=== PATIENT | male | born 1990 | race Caucasian/White ===

== ENCOUNTER 2018-03-14 19:03 | Emergency (ER) | payer OTHER, SELFPAY ==
[2018-03-14 19:06] VITALS: BP 140/90; PULSE 80; RESP 20; TEMP 36.7; O2SAT 100; BMI 23.0
--- NOTE | 2018-03-14 19:10 | DI.RAD.S_ITS ---
PROCEDURE: XR WRIST RT MIN 3V INDICATIONS: injury, pain TECHNIQUE: 4 views of the wrist were acquired. COMPARISON: None. FINDINGS: Bones: There is a nondisplaced transverse fracture in the distal pole of the scaphoid. A slightly displaced ulnar styloid fracture is present. No suspicious bony lesions. Soft tissues: No suspicious soft tissue calcifications. Soft tissue swelling is present. IMPRESSION: 1. Nondisplaced scaphoid fracture involving the distal pole. 2. Ulnar styloid fracture. Dictated by: Cristobal Zayas M.D. on 03/14/2018 at 19:27 Approved by: Cristobal Zayas M.D. on 03/14/2018 at 19:29
[2018-03-14] MEDS: IBUPROFEN 400 MG TABLET 800 MG PO (20:20)
--- NOTE | 2018-03-14 20:24 | ED.UPPEXIN ---
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 He is right-handed. States that he thought it was okay at the time, but started hurting intensely today after work (he did not have any new trauma but was lifting small containers of strawberries repetitively). He denies any other injury. He states he is not having pain in the wrist, forearm, or elbow. He did not hit his head or pass out. He took 1 of his grandmother's oxycodone and also some ibuprofen which he thinks helped earlier Related Data Allergies Allergy/AdvReac Type Severity Reaction Status Date / Time No Known Drug Allergies Allergy Verified 03/14/18 19:10 Review of Systems <Citlaly Cano PA-C - Last Filed: 03/14/18 22:38> Review of Systems All systems reviewed & are unremarkable except as noted in HPI and below PFSH <Citlaly Cano PA-C - Last Filed: 03/14/18 22:38> Comment: uses [facility]. 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 LUNGS: Clear to auscultation bilaterally. HEART: Rate and rhythm regular without murmur, normal S1 and S2, no S3 or S4. MUSCULOSKELETAL: No right wrist effusion. Tender over both the medial and lateral distal borders of the right wrist. No tenderness over the metacarpals, right hand fingers, forearm or elbow. Strength is intact in all of the fingers against resistance. NEUROVASCULAR: Right wrist pulses are intact, fingers are warm and pink with brisk cap refill. Sensation is grossly intact Initial Vital Signs Initial Vital Signs: Vital Signs Temperature 98.0 F 03/14/18 19:06 Pulse Rate 80 03/14/18 19:06 Respiratory Rate 20 03/14/18 19:06 Blood Pressure 140/90 03/14/18 19:06 Pulse Oximetry 100 03/14/18 19:06 <Junaid Ochoa DO - Last Filed: 03/15/18 00:26> Initial Vital Signs Initial Vital Signs: Vital Signs Temperature 98.0 F 03/14/18 19:06 Pulse Rate 80 03/14/18 19:06 Respiratory Rate 20 03/14/18 19:06 Blood Pressure 140/90 03/14/18 19:06 Pulse Oximetry 100 03/14/18 19:06 Course <Citlaly Cano PA-C - Last Filed: 03/14/18 22:38> Additional Information: Modified thumb spica splint placed (also extending to ulnar side to immobilize 4th and 5th fingers). Patient reported this felt comfortable. On splint check this appeared well-fitted, fingers were warm and pink with sensation intact Orders Ordered: ED Orders 03/14/18 19:10 XR wrist RT min 3V Stat Discontinued Medications Ibuprofen (Advil) 800 mg PO NOW ONE Stop: 03/14/18 20:18 Last Admin: 03/14/18 20:20 Dose: 800 mg Oxycodone/Acetaminophen (Percocet 5/325) 1 tab PO NOW ONE Stop: 03/14/18 20:38 Last Admin: 03/14/18 20:58 Dose: 1 tab Oxycodone/Acetaminophen (Endocet 5/325 Prepack) 1 bottle MISC SEEINSTR ONE Stop: 03/14/18 20:50 Last Admin: 03/14/18 20:59 Dose: 1 bottle Vital Signs - 8 hr 03/14/18 19:06 03/14/18 22:06 Temperature 98.0 F Pulse Rate 80 74 Respiratory Rate 20 18 Blood Pressure 140/90 130/85 Pulse Oximetry 100 97 <Junaid Ochoa DO - Last Filed: 03/15/18 00:26> Orders Ordered: ED Orders 03/14/18 19:10 XR wrist RT min 3V Stat Discontinued Medications Ibuprofen (Advil) 800 mg PO NOW ONE Stop: 03/14/18 20:18 Last Admin: 03/14/18 20:20 Dose: 800 mg Oxycodone/Acetaminophen (Percocet 5/325) 1 tab PO NOW ONE Stop: 03/14/18 20:38 Last Admin: 03/14/18 20:58 Dose: 1 tab Oxycodone/Acetaminophen (Endocet 5/325 Prepack) 1 bottle MISC SEEINSTR ONE Stop: 03/14/18 20:50 Last Admin: 03/14/18 20:59 Dose: 1 bottle Vital Signs - 8 hr 03/14/18 19:06 03/14/18 22:06 Temperature 98.0 F Pulse Rate 80 74 Respiratory Rate 20 18 Blood Pressure 140/90 130/85 Pulse Oximetry 100 97 MDM - Extremity Injury (Upper) <Citlaly Cano PA-C - Last Filed: 03/14/18 22:38> Imaging Data wrist: Radiologist's impression: View Report History [address] [address] XRay Report Signed Patient: KASHIF KENT MR#: [id number] : 1990 Acct:[id number] Age/Sex: 27 / M Date of Service: 03/14/18 Loc: ED Accession Number: [id number] Procedure: XR wrist RT min 3V Ordering Provider: Citlaly Cano P.A-C PROCEDURE: XR WRIST RT MIN 3V INDICATIONS: injury, pain TECHNIQUE: 4 views of the wrist were acquired. COMPARISON: None. FINDINGS: Bones: There is a nondisplaced transverse fracture in the distal pole of the scaphoid. A slightly displaced ulnar styloid fracture is present. No suspicious bony lesions. Soft tissues: No suspicious soft tissue calcifications. Soft tissue swelling is present. IMPRESSION: 1. Nondisplaced scaphoid fracture involving the distal pole. 2. Ulnar styloid fracture. Dictated by: Cristobal Zayas M.D. on 03/14/2018 at 19:27 Approved by: Cristobal Zayas M.D. on 03/14/2018 at 19:29 Discharge Plan Departure Patient Disposition: Home Clinical Impression: Fracture of wrist Discharge Date/Time: 03/14/18 22:07 Interventions: ED Discharge Assessment Last Done: 03/14/18 22:06 Instructions: DI for Wrist Fracture Activity Restrictions/Additional Instructions: Return if you have acutely worsening symptoms or problems with your splint. Otherwise, you can take the pain pills we gave you tonight and tomorrow if needed (no driving as they can make you sleepy), and take Ibuprofen 800mg every 8 hours with food for the next couple of days for pain and inflammation, then as needed. Call orthopedics on Friday and let them know that you were seen in the emergency dept for fractures and need to set up a follow up visit next week. Referrals: [facility] [Provider Group] <Junaid Ochoa DO - Last Filed: 03/15/18 00:26> Cosign ED Attending Beka Attestation: I was available for consultation during this patient's emergency department encounter
[2018-03-14] MEDS: OXYCODONE/ACETAMINOPHEN 5/325 TABLET 1 TAB PO (20:58)
[2018-03-14] MEDS: OXYCODONE/APAP 5/325 PREPACK 1 BOTTLE MISC (20:59)
[2018-03-14 22:06] VITALS: BP 130/85; PULSE 74; RESP 18; O2SAT 97
== END 2018-03-14 22:07 | disposition home or self-care (01) ==
PROVIDERS: Emergency Provider Internal Medicine
DX: S62.014A Nondisplaced fracture of distal pole of navicular [scaphoid] bone of right wrist, initial encounter for closed fracture (principal); S52.611A Displaced fracture of right ulna styloid process, initial encounter for closed fracture; V00.131A Fall from skateboard, initial encounter
CPT/HCPCS: 29125; 73110; 99283

== ENCOUNTER → 2018-04-07 12:33 | Outpatient (CLI) | payer OTHER, SELFPAY ==
--- NOTE | 2018-04-07 | DI.CT.S_ITS ---
PROCEDURE: CT UE RT WO CON INDICATIONS: NONDISPLACED FRACTURE OF RIGHT WRIST TECHNIQUE: Noncontrast 1 mm axial sections acquired through the carpal bones, with coronal and sagittal reformats. COMPARISON: [facility], CR, XR WRIST RT MIN 3V, 03/14/2018, 18:50. FINDINGS: Image quality: Excellent. Bones: Nondisplaced scaphoid waist fracture is again noted, unchanged in alignment since 03/14/18. There is partial osseous fusion in keeping with healing fracture. No definite focal sclerosis seen in the proximal pole. No evidence of articular surface collapse. Ulnar styloid fracture again noted as before. IMPRESSION: Healing scaphoid waist fracture with partial osseous fusion and unchanged alignment. No evidence of avascular necrosis. Unchanged ulnar styloid fracture. Dictated by: Nathan Smith M.D. on 04/07/2018 at 14:08 Approved by: Nathan Smith M.D. on 04/07/2018 at 14:13
== END ==
PROVIDERS: Visit Provider Orthopaedic Surgery
DX: S62.001D Unspecified fracture of navicular [scaphoid] bone of right wrist, subsequent encounter for fracture with routine healing (principal); S52.611D Displaced fracture of right ulna styloid process, subsequent encounter for closed fracture with routine healing
CPT/HCPCS: 73200

== ENCOUNTER 2018-12-14 20:39 | Emergency (ER) | payer OTHER, SELFPAY ==
[2018-12-14 20:40] VITALS: BP 140/86; PULSE 103; RESP 14; TEMP 37.1; O2SAT 98
== END 2018-12-14 23:07 | disposition left against medical advice (07) ==
PROVIDERS: Emergency Provider Emergency Medicine
DX: Z53.21 Procedure and treatment not carried out due to patient leaving prior to being seen by health care provider (principal)
CPT/HCPCS: 99282

== ENCOUNTER → 2021-06-26 11:32 | Outpatient (CLI) | payer OTHER, MEDICAID, SELFPAY | PROVIDERS: Visit Provider Physician Assistant | DX: Z20.822 Contact with and (suspected) exposure to COVID-19 (principal); R05.9 Cough, unspecified; R07.0 Pain in throat | CPT/HCPCS: 87070; 87077; 87147; 87880 ==

== ENCOUNTER 2021-12-30 20:19 | Emergency (ER) | payer OTHER, MEDICAID, SELFPAY ==
[2021-12-30 20:42] VITALS: BP 157/94; PULSE 88; RESP 16; TEMP 36.9; O2SAT 99; BMI 23.0
[2021-12-30 23:19] VITALS: BP 133/92; PULSE 87; O2SAT 96
[2021-12-30] MEDS: DEXAMETHASONE 10 MG/ML VIAL 20 MG IV (23:59)
[2021-12-30] MEDS: KETOROLAC 30 MG/ML VIAL 15 MG IV (23:59)
[2021-12-30] MEDS: SODIUM CHLORIDE 0.9% 1,000 ML 1000 ML IV (23:59)
[2021-12-31] MEDS: AMOXICILLIN/CLAV 875/125 MG 1 TAB PO (00:29)
[2021-12-31 00:31] VITALS: PULSE 82; O2SAT 98
[2021-12-31 00:32] VITALS: BP 144/86; PULSE 75; O2SAT 99
--- NOTE | 2021-12-31 02:35 | ED.URI ---
HPI - URI/Sore Throat General Chief Complaint: Upper Respiratory Symptoms Stated Complaint: sWOLLEN TONSILS, SORE THROAT Time Seen by Provider: 12/30/21 23:30 History of Present Illness HPI Narrative: 31-year-old male smoker presents with a chief complaint sore throat and enlarged tonsils with difficulty swallowing for the past few days. He states his notably worse on the left than the right. He is able to eat and drink though with difficulty. He has pain but is able to swallow. He denies any trouble breathing. He states that he has been seen and had a negative COVID swab and has had a negative strep. He denies any current fever but was running a temperature a day or 2 ago. He denies any chest pain or shortness of breath. He has had no nausea, vomiting or diarrhea. Related Data Previous Rx's Medication Instructions Recorded amoxicillin 875 mg-potassium 1 tab PO Q12H #20 tabs 12/31/21 clavulanate 125 mg tablet Allergies Allergy/AdvReac Type Severity Reaction Status Date / Time No Known Drug Allergies Allergy Verified 12/14/18 20:43 Review of Systems Review of Systems Narrative: GENERAL: See HPI HEENT: See HPI RESPIRATORY: Denies dyspnea, cough, wheezing, hemoptysis, sputum. CARDIOVASCULAR: Denies chest pain, palpitations, orthopnea, edema, GASTROINTESTINAL: Denies nausea, vomiting, abdominal pain, diarrhea, constipation, melena. : Denies dysuria, frequency, incontinence, hematuria, urinary retention. MUSCULOSKELETAL: denies weakness, joint pain, or bony pain SKIN: Denies rash, skin lesions, or other NEUROLOGIC: Denies weakness, headache, numbness, change in speech, confusion, seizures, incoordination. PSYCHIATRIC: No concerning psychosocial issues. 12 point review of systems is negative except for those stated above Patient History Medical History Healthy adult male History of left below knee amputation Surgical History H/O hand surgery Social History Smoking Status: Current some day smoker Smoking Status: Current some day smoker alcohol intake frequency: a few times a week Substance Use Type: marijuana Exam Narrative Exam Narrative: GENERAL: [31] year old patient appears stated age. Well-developed patient, in mild distress. HEAD: Atraumatic. Normocephalic. EYES: Pupils equal round and reactive. Extraocular motions intact. No scleral icterus. No injection or drainage. ENT: Nose without bleeding, purulent drainage. Posterior pharyngeal erythema is noted and left tonsil swollen with exudate. There is some posterior fullness to suggest an early abscess, perhaps a very minimal uvular pointing, patient tolerating secretions without difficulty, airway patent. NECK: Trachea midline. Non tender CARDIOVASCULAR: Regular rate and rhythm without murmurs, gallops, or rubs. RESPIRATORY: Clear to auscultation. Breath sounds equal bilaterally. No wheezes, rales, or rhonchi. GASTROINTESTINAL: Abdomen soft, non-tender, nondistended. EXTREMITIES: No edema or joint tenderness. BACK: Nontender without deformity or crepitance. No flank tenderness. NEURO: AOx3. SKIN: No rash or erythema of visible areas Initial Vital Signs Initial Vital Signs: Vital Signs Temperature 98.4 F 12/30/21 20:42 Pulse Rate 88 12/30/21 20:42 Respiratory Rate 16 12/30/21 20:42 Blood Pressure 157/94 H 12/30/21 20:42 Pulse Oximetry 99 12/30/21 20:42 Oxygen Delivery Method 12/30/21 20:42 Course Orders Ordered: ED Orders 12/30/21 20:50 Throat Culture Stat Discontinued Medications Amoxicillin/Clavulanate Potassium (Amoxicillin/Clav 875/125 Mg) 1 tab PO NOW ONE Stop: 12/31/21 00:23 Last Admin: 12/31/21 00:29 Dose: 1 tab Documented By: DANY Dexamethasone (Dexamethasone 10 Mg/Ml Vial) 20 mg IV NOW ONE Stop: 12/30/21 23:47 Last Admin: 12/30/21 23:59 Dose: 20 mg Documented By: DANY Sodium Chloride (Normal Saline 0.9%) 1,000 mls @ 1,000 mls/hr IV BOLUS ONE Stop: 12/31/21 00:45 Last Admin: 12/30/21 23:59 Dose: 1,000 mls/hr Documented By: DANY Ketorolac Tromethamine (Ketorolac 30 Mg/Ml Vial) 15 mg IV NOW ONE Stop: 12/30/21 23:47 Last Admin: 12/30/21 23:59 Dose: 15 mg Documented By: Vital Signs Vital signs: Vital Signs - 8 hr 12/30/21 20:42 12/30/21 23:19 12/30/21 23:19 Temperature 98.4 F Pulse Rate 88 87 Respiratory Rate 16 Blood Pressure 157/94 H 133/92 H Pulse Oximetry 99 96 Oxygen Delivery Method Room Air Room Air 12/31/21 00:31 12/31/21 00:32 12/31/21 00:32 Temperature Pulse Rate 82 75 Respiratory Rate Blood Pressure 144/86 H Pulse Oximetry 98 99 Oxygen Delivery Method MDM - URI/Sore Throat Lab Data Labs: Point of Care Testing Rapid Strep A Negative MDM Narrative Medical decision making narrative: Rapid strep negative and culture obtained, there is tonsillar swelling and exudate with some fullness to suggest an early abscess. Patient tolerating secretions with patent airway. Given fluids, anti-inflammatories and antibiotics with strict return precautions. Questions answered to his apparent satisfaction Discharge Plan Departure Patient Disposition: Home Clinical Impression: Abscess, peritonsillar Instructions: DI for Peritonsillar Abscess -- Adult Activity Restrictions/Additional Instructions: *You have been diagnosed with [peritonsillar abscess *What to do: *Please continue to take your regular medications as directed. [x ] New medication prescriptions sent to your pharmacy: [ [facility]] [ ] New medication written as a paper prescription [ ] No new medications given *Please follow up with your primary care provider in 2-3 days, call for an appointment. Let them know you were seen in the Emergency Department and that we ask that you be seen in follow up. We will electronically transmit a record of today's note if your PCP is in our system *If you do not have a primary care provider please contact the [facility] Resource line at [phone]. They will ask some questions about your medical history and help get you set up with a doctor in the community. *Return to Emergency Department if you should have any new, worsening or concerning symptoms, such as [fever greater than 101 F, shaking chills, worsening pain, persistent vomiting or other bothersome symptoms] Prescriptions: New amoxicillin-pot clavulanate 875-125 mg tablet 1 tab PO Q12H Qty: 20 0RF Referrals: Miscellaneous,Doctor, [Primary Care Provider] - Visit Report Forms: Patient Portal/API
--- NOTE | 2021-12-31 10:16 | PC.NURSE ---
Patient calling because he is unable to fill his Augmentin prescription, due to the holiday. It was sent to [facility]. He is requesting it be sent to [facility]. Called and spoke with pharmacist and gave verbal to fill.
== END 2021-12-31 00:37 | disposition home or self-care (01) ==
PROVIDERS: Emergency Provider Emergency Medicine
DX: J36 Peritonsillar abscess (principal)
CPT/HCPCS: 87070; 87880; 96374; 96375; 99284; J1100; J1885

== ENCOUNTER 2023-10-22 10:57 | Emergency (ER) | payer OTHER, MEDICAID, SELFPAY ==
[2023-10-22] VITALS (16 sets, daily range): BP systolic 131–153; BP diastolic 67–82; PULSE 99–130; RESP 15–29; TEMP 36.6; O2SAT 94–100; BMI 25.1
[2023-10-22 11:58] LABS: Add Manual Diff / Slide Review NO; Basophils Absolute Auto 0 /uL (0-100); Basophils Percent Auto 0.2 % (0-2); Eosinophils Absolute Auto 100 /uL (0-450); Eosinophils Percent Auto 0.4 % (2-4); Hematocrit 34.3 % (41-53); Hemoglobin 11.9 g/dL (13.5-17.5); Lymphocytes Absolute Auto 700 /uL (1100-4500); Lymphocytes Percent Auto 5.7 % (25-40); Mean Corpuscular HGB Conc 34.8 % (30-36); Mean Corpuscular Hemoglobin 31.9 PG (26-34); Mean Corpuscular Volume 91.7 fL (80-100); Monocytes Absolute Auto 1000 /uL (0-900); Monocytes Percent Auto 8.2 % (3-14); Neutrophils Absolute Auto 10900 /uL (1500-7000); Neutrophils Percent Auto 85.5 % (50-75); Platelet Count 218 X10^3/uL (150-400); Red Blood Cell Count 3.74 X10^6/uL (4.5-5.9); Red Cell Distribution Width 13.4 % (11.6-14.8); White Blood Cell Count 12.8 X10^3/uL (4.5-11.0)
[2023-10-22 12:02] LABS: Alanine Aminotransferase 32 IU/L (<50); Albumin 4.4 g/dL (3.5-5.0); Albumin Globulin Ratio 1.4 (1.0-2.8); Alkaline Phosphatase 70 U/L (38-126); Aspartate Aminotransferase 30 IU/L (17-59); BUN Creatinine Ratio 13.8 (6-22); Bilirubin Total 1.8 mg/dL (0.2-1.3); Blood Urea Nitrogen 11 mg/dL (9-20); Calcium 8.9 mg/dL (8.4-10.2); Carbon Dioxide 29 mmol/L (22-32); Chloride 101 mmol/L (98-107); Estimated Glomerular Filt Rate > 60 mL/min (>60); Globulin 3.1 g/dL (1.7-4.1); Glucose 126 mg/dL (70-100); HEMOLYSIS < 15 (0-50); Potassium 3.2 mmol/L (3.4-5.1); Sodium 138 mmol/L (137-145); Total Protein 7.5 g/dL (6.3-8.2)
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
--- NOTE | 2023-10-22 12:13 | DI.CT.S_ITS ---
PROCEDURE: CT HEAD/BRAIN WO CON INDICATIONS: trauma TECHNIQUE: Noncontrast 4.5 mm thick angled axial sections acquired from the foramen magnum to the vertex, with coronal and sagittal reformats. For radiation dose reduction, the following was used: automated exposure control, adjustment of mA and/or kV according to patient size. COMPARISON: None. FINDINGS: Image quality: Diagnostic. CSF spaces: Basal cisterns are patent. No extra-axial fluid collections. Ventricles are normal in size and shape. Brain: No midline shift. No intracranial masses or hemorrhage. Shaw-white matter interface is normal. Skull and face: Calvarium and visualized facial bones are intact, without suspicious lesions. Small left frontal scalp hematoma. Sinuses: Small mucous retention cyst versus polyp. IMPRESSION: No acute intracranial pathology. Left frontal scalp hematoma. Dictated by: Eveline Spicer M.D. on 10/22/2023 at 12:49 Approved by: Eveline Spicer M.D. on 10/22/2023 at 12:50
--- NOTE | 2023-10-22 12:13 | DI.CT.S_ITS ---
PROCEDURE: CT CHEST ABD PEL W CON INDICATIONS: trauma TECHNIQUE: After the administration of intravenous contrast, 5 mm thick sections acquired from the lung apices to the symphysis. 2.5 mm thick coronal and sagittal reformats were acquired. Additional 7 mm thick coronal maximum intensity projection (MIP) reformats acquired through the lungs. Optional 10-minute delayed imaging may be performed from the kidneys to the bladder. For radiation dose reduction, the following was used: automated exposure control, adjustment of mA and/or kV according to patient size. COMPARISON: None. FINDINGS: Image quality: Diagnostic. CHEST: Lower Neck: No enlarged lymph nodes. Thyroid: No thyroid nodules which require sonographic evaluation. Axillae: No enlarged lymph nodes. Chest Wall: No subcutaneous gas. Lungs and Pleura: No pulmonary contusions or lacerations. No acute airspace opacities. No pneumothorax or hemothorax. Mediastinum: No mediastinal hematomas. Heart size is normal. No pericardial effusion. Thoracic aorta and pulmonary arteries demonstrate normal size and enhancement. No mediastinal or hilar adenopathy. Esophagus is normal in caliber. No hiatal hernia. ABDOMEN: Liver: No lacerations. Gallbladder: No radiopaque gallstones or wall thickening. Biliary ducts: No biliary dilation. Pancreas: Homogenous enhancement. Spleen: Homogenous enhancement without laceration or hematoma. Adrenal Glands: Symmetric enhancement. Kidneys and Ureters: Symmetric enhancement. No hydronephrosis. No solid mass. No complex renal cystic lesion which requires follow up. Stomach and Bowel: Normal colonic caliber, without significant wall thickening. Peritoneum: No abnormal intraperitoneal fluid. No free air. Ventral Wall: There is a fat containing mass appearance in the anterior abdominal mesenteric fat. Mild appearance of stranding of the defined fat in the anterior mesenteric fat. No priors. Abdominal Nodes: No retroperitoneal or mesenteric adenopathy by size criteria. Vessels: Aorta and inferior vena cava are normal in size. PELVIS: Pelvic Organs: Unremarkable. Bladder: Normal thickness. Pelvic Nodes: No enlarged lymph nodes. Miscellaneous: No inguinal hernias are seen. Patchy areas inflammatory change are present in the posterior left gluteal region. No focal defined abscess. Bones: Pelvic ring and hip joints appear intact. No displaced rib fractures. IMPRESSION: Inflammatory change suggestive of contusion or inflammation within the left gluteal region. No visualized underlying fracture. Stranded appearance of fat containing mass in the anterior mesenteric fat. This could represent a lipoma. However, short interval imaging follow-up is recommended to document stability. Dictated by: Eveline Spicer M.D. on 10/22/2023 at 13:36 Approved by: Eveline Spicer M.D. on 10/22/2023 at 14:09
--- NOTE | 2023-10-22 12:13 | DI.CT.S_ITS ---
PROCEDURE: CT CERVICAL SPINE WO CON INDICATIONS: trauma TECHNIQUE: Noncontrast 3 mm thick sections acquired from the skull base to the T4 level. Sagittal and coronal reformats were then constructed. For radiation dose reduction, the following was used: automated exposure control, adjustment of mA and/or kV according to patient size. COMPARISON: None. FINDINGS: Image quality: Excellent. Bones: No fractures or dislocations. Visualized superior ribs are intact. Soft tissues: Prevertebral soft tissues are normal in thickness. No paravertebral hematomas. No apical pneumothoraces. IMPRESSION: No displaced fracture or traumatic subluxation. Dictated by: Eveline Spicer M.D. on 10/22/2023 at 12:52 Approved by: Eveline Spicer M.D. on 10/22/2023 at 12:54
[2023-10-22] MEDS: KETOROLAC 30 MG/ML VIAL 15 MG IV (13:02)
[2023-10-22] MEDS: HYDROMORPHONE 0.5 MG INJ IV ×2 (13:02→16:32)
[2023-10-22] MEDS: OXYCODONE/ACETAMINOPHEN 5/325 TABLET 1 TAB PO (16:31)
== END 2023-10-22 16:38 | disposition home or self-care (01) ==
PROVIDERS: Emergency Provider Emergency Medicine; PCP Family Medicine
DX: S00.83XA Contusion of other part of head, initial encounter (principal); S30.0XXA Contusion of lower back and pelvis, initial encounter; D62 Acute posthemorrhagic anemia; V86.56XA Driver of dirt bike or motor/cross bike injured in nontraffic accident, initial encounter
CPT/HCPCS: 36415; 70450; 71260; 72125; 74177; 80053; 85025; 93005; 96374; 96375; 99285; J1170; J1885; Q9967

== ENCOUNTER → 2025-01-31 11:46 | Outpatient (CLI) | payer MEDICAID, SELFPAY ==
--- NOTE | 2025-01-31 11:49 | DI.US.S_ITS ---
PROCEDURE: US SOFT TISSUE ABDOMEN INDICATIONS: follow up CT, abdominal lipoma TECHNIQUE: Real-time focused scanning was performed of the abdomen, with image documentation. COMPARISON: [facility], CT, CT CHEST ABD PEL W CON, 10/22/2023, 12:34. FINDINGS: Grayscale color Doppler images of the midline ventral abdomen were acquired. Chest the left of the midline, there is a 1.6 x 2.2 x 1.4 cm hypoechoic mass without associated vascularity. This correlates with hypodense lesion seen within the ventral abdominal fat just deep to the fascial layer of the left rectus muscle. This measured fat attenuation on comparison CT. IMPRESSION: Indeterminate, nonvascular 1.6 x 2.2 x 1.4 cm hypoechoic mass in the ventral abdominal fat just to the left of midline and deep to the left rectus muscle. No vascularity seen. Recommend continued clinical surveillance and follow-up imaging for any new suspicious or worsening symptoms. If there is persistent clinical concern, consider further characterization with contrast enhanced MRI. Dictated by: Marco Antonio Card M.D. on 01/31/2025 at 18:11 Approved by: Marco Antonio Card M.D. on 01/31/2025 at 18:16
== END ==
PROVIDERS: PCP Family Medicine; Referring Provider Family Medicine; Visit Provider Family Medicine
DX: D17.1 Benign lipomatous neoplasm of skin and subcutaneous tissue of trunk (principal); R19.00 Intra-abdominal and pelvic swelling, mass and lump, unspecified site
CPT/HCPCS: 76705